=== PATIENT | female | born 1945 | race Caucasian/White ===

== ENCOUNTER 2021-11-10 17:57 | Emergency (ER) | payer OTHER ==
[~2021-11-10] VITALS: Ht 162.6 cm; Wt 90.7 kg
[2021-11-10 18:10] VITALS: BP_SYST 178
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
--- NOTE | 2021-11-10 18:12 | NUR ---
DR. GILL MET WITH PT TO ASSESS.
--- NOTE | 2021-11-10 19:23 | NUR ---
PT ENDORSED TO BRYN OROZCO. ALL QUESTIONS AND CONCERNS ADDRESSED.
--- NOTE | 2021-11-10 19:24 | NUR ---
PT BACK FROM XRAY. Addendum: 11/10/21 at 1925 by [id number] WRONG PT
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
[2021-11-10] MEDS ORDERED: IBUPROFEN 600 MG TABLET PO ONE (21:15)
[2021-11-10 22:40] VITALS: BP_SYST 157
--- NOTE | 2021-11-10 22:42 | NUR ---
DC PT HOME AAOX4, NO SOB NOTED AND NOT IN ANY DISTRESS. DC INSTRUCTION WERE GIVEN BY DR. GILL AT BEDSIDE. PT AMBULATED WITH STAEDY GAIT ACCOMPANIED BY HER OUT OF DEPARTMENT. SHE VERBALIZED UNDERSTANIDNG ON ALL DC INSTRUCTION
== END 2021-11-10 22:40 | disposition home or self-care (01) ==
LOC: SED 17:57
DX: S16.1XXA Strain of muscle, fascia and tendon at neck level, initial encounter (principal); S39.012A Strain of muscle, fascia and tendon of lower back, initial encounter; E11.9 Type 2 diabetes mellitus without complications; V49.40XA Driver injured in collision with unspecified motor vehicles in traffic accident, initial encounter; Y93.89 Activity, other specified; Y92.89 Other specified places as the place of occurrence of the external cause; Y99.8 Other external cause status
CPT/HCPCS: 71045; 72040-TC; 72100-TC; 82962; 99284